=== PATIENT | female | born 1975 | race Hispanic/Latino ===

== ENCOUNTER 2020-11-24 09:41 | Outpatient (CLI) | payer OTHER | END 2020-11-24 09:42 | disposition home or self-care (01) | LOC: SCSMRI 09:41 | PROVIDERS: ATTEND Neurological Surgery | DX: M54.16 Radiculopathy, lumbar region (principal); M47.817 Spondylosis without myelopathy or radiculopathy, lumbosacral region | CPT/HCPCS: 72148 ==

== ENCOUNTER 2020-12-16 09:40 | Outpatient (CLI) | payer OTHER ==
[2020-12-16 11:23] LABS: Mean Corpuscular HGB CONC 33.6 g/dL (32.0-36.0); Mean Corpuscular Hemoglobin 30.8 pg (27.0-33.0); Mean Corpuscular Volume 91.7 fl (81.6-98.3); Mean Platelet Volume 10.6 fl (7.4-10.4); Platelet Count 216 10x3/uL (150-450); RBC Distribution Width 12.8 % (11.5-14.5); Red Blood Cell (RBC) Count 4.22 10x6/uL (3.90-5.03); White Blood Cell (WBC) Count 6.4 10x3/uL (3.5-10.5)
[2020-12-16 11:47] LABS: Anion Gap 13 mmol/L (10-20); BUN (Urea Nitrogen) 10 mg/dL (7.0-18.7); Calc. Creatinine Clearance 0 mL/min (70-130); Calcium 9.7 mg/dL (7.8-10.44); Carbon Dioxide 25 mmol/L (22-29); Chloride 103 mmol/L (98-107); Glucose 98 mg/dL (70-105); Potassium 4.4 mmol/L (3.5-5.1); Sodium 137 mmol/L (136-145)
[2020-12-17 02:26] LABS: SARS-CoV-2 PCR by NAA Not Detected (NotDetected)
== END 2020-12-16 09:41 | disposition home or self-care (01) ==
LOC: LABBT 09:40
PROVIDERS: ATTEND Neurological Surgery
DX: Z01.818 Encounter for other preprocedural examination (principal); M54.16 Radiculopathy, lumbar region; Z20.822 Contact with and (suspected) exposure to COVID-19
CPT/HCPCS: 80048; 85027; 93005; 93010; U0003; U0005

== ENCOUNTER 2020-12-21 05:56 | Day surgery (SDC) | payer OTHER ==
[2020-12-18 10:02] VITALS: BMI 29.2
[2020-12-21] MEDS ORDERED: Fentanyl 100 MCG/2 ML VIAL ONE ×3 (06:42→09:48)
[2020-12-21] MEDS ORDERED: Lidocaine 2% Jelly 5 ML TUBE ONE (06:43)
[2020-12-21] MEDS ORDERED: Ondansetron PF 4 MG/2 ML Vial ONE ×2 (07:27→11:19)
[2020-12-21] MEDS ORDERED: Rocuronium Bromide 10 MG/ML (10ML VIAL) ONE (07:27)
[2020-12-21] MEDS ORDERED: Glycopyrrolate 0.2 MG/ML 5 ML SYRINGE ONE (07:27)
[2020-12-21] MEDS ORDERED: ePHEDrine 50 MG/ML VIAL ONE (07:27)
[2020-12-21] MEDS ORDERED: PROPOFOL 200 MG/20 ML VIAL ONE (07:27)
[2020-12-21] MEDS ORDERED: Dexamethasone 20 MG/5 ML VIAL ONE (07:27)
[2020-12-21] MEDS ORDERED: Lidocaine 1% PF 5 ML VIAL ONE (07:27)
[2020-12-21] MEDS ORDERED: Albuterol Sulfate 1.25 MG/3 ML NEB ONE (08:56)
[2020-12-21] MEDS ORDERED: HYDROcodone/Acetaminophen 5/325 mg Tablet ONE ×2 (13:07→13:53)
== END 2020-12-21 14:32 | disposition home or self-care (01) ==
LOC: SDC 05:56
PROVIDERS: ATTEND Neurological Surgery
PROC: 0SG30AJ Fusion of Lumbosacral Joint with Interbody Fusion Device, Posterior Approach, Anterior Column, Open Approach (ICD-10-PCS; principal; 2020-12-21)
DX: M51.27 Other intervertebral disc displacement, lumbosacral region (principal); M54.16 Radiculopathy, lumbar region; G43.909 Migraine, unspecified, not intractable, without status migrainosus; Z79.899 Other long term (current) drug therapy
CPT/HCPCS: 76000; C1713; C1768; J0690; J1100; J2405; J2704; J3010; J3370; J3490

== ENCOUNTER 2021-01-07 13:36 | Outpatient (CLI) | payer OTHER | END 2021-01-07 13:37 | disposition home or self-care (01) | LOC: TBSIIMAG 13:36 | PROVIDERS: ATTEND Physician Assistant | DX: M54.16 Radiculopathy, lumbar region (principal); Z98.890 Other specified postprocedural states | CPT/HCPCS: 72100 ==

== ENCOUNTER 2021-02-18 08:38 | Outpatient (CLI) | payer OTHER | END 2021-02-18 08:39 | disposition home or self-care (01) | LOC: TBSIIMAG 08:38 | PROVIDERS: ATTEND Neurological Surgery | DX: M54.50 Low back pain, unspecified (principal); Z98.1 Arthrodesis status | CPT/HCPCS: 72100 ==

== ENCOUNTER 2021-05-19 09:47 | Outpatient (CLI) | payer OTHER | END 2021-05-19 09:48 | disposition home or self-care (01) | LOC: TBSIIMAG 09:47 | PROVIDERS: ATTEND Neurological Surgery | DX: M54.16 Radiculopathy, lumbar region (principal) | CPT/HCPCS: 72100 ==